=== PATIENT | female | born 1970 | race Caucasian/White ===

== ENCOUNTER 2017-02-17 14:51 | Emergency (ER) | payer SELFPAY ==
[2017-02-17] MEDS ORDERED: HYDROCODONE/ACETAMINOPHEN 5-325 MG TABLET PO ONE (15:26)
--- NOTE | 2017-02-17 15:28 | ER Document Report ---
ED General - General Chief Complaint: L flank pain Stated Complaint: BACK PAIN Time Seen by Provider: 02/17/17 15:16 Mode of Arrival: Ambulatory Information source: Patient Notes: 46-year-old female history polycystic kidney disease presents with complaints of left flank pain of 2 week duration. Patient denies any fevers or chills nausea vomiting or diarrhea. TRAVEL OUTSIDE OF THE [place] IN LAST 30 DAYS: No - HPI Onset: Other - 2 week duration Onset/Duration: Persistent Quality of pain: Achy Severity: Mild Pain Level: 1 Associated symptoms: Other Exacerbated by: Movement Relieved by: Denies Similar symptoms previously: No Recently seen / treated by doctor: No - Related Data Allergies/Adverse Reactions: codeine Allergy (Verified 02/17/17 15:16) Past Medical History - Social History Smoking Status: Never Smoker Cigarette use (# per day): No Chew tobacco use (# tins/day): No Smoking Education Provided: No Frequency of alcohol use: Rare Drug Abuse: None Family History: Reviewed & Not Pertinent - Past Medical History Cardiac Medical History: Reports: Hx Hypertension Renal/ Medical History: Denies: Hx Peritoneal Dialysis GI Medical History: Reports: Hx Gastroesophageal Reflux Disease Surgical Hx: Negative - Immunizations Hx Diphtheria, Pertussis, Tetanus Vaccination: No Review of Systems - Review of Systems Notes: REVIEW OF SYSTEMS: CONSTITUTIONAL : Denies fever, chills, or sweats. Denies recent illness. EENT: Denies eye, ear, throat, or mouth pain or symptoms. Denies nasal or sinus congestion or discharge. Denies throat, tongue, or mouth swelling or difficulty swallowing. CARDIOVASCULAR: Denies chest pain. Denies palpitations or racing or irregular heart beat. Denies ankle edema. RESPIRATORY: Denies cough, cold, or chest congestion. Denies shortness of breath, difficulty breathing, or wheezing. GASTROINTESTINAL: Admits to left flank pain GENITOURINARY: Denies difficulty urinating, painful urination, burning, frequency, blood in urine, or discharge. FEMALE GENITOURINARY: Denies vaginal bleeding, heavy or abnormal periods, irregular periods. Denies vaginal discharge or odor. MUSCULOSKELETAL: Denies back or neck pain or stiffness. Denies joint pain or swelling. SKIN: Denies rash, lesions or sores. HEMATOLOGIC : Denies easy bruising or bleeding. LYMPHATIC: Denies swollen, enlarged glands. NEUROLOGICAL: Denies confusion or altered mental status. Denies passing out or loss of consciousness. Denies dizziness or lightheadedness. Denies headache. Denies weakness or paralysis or loss of use of either side. Denies problems with gait or speech. Denies sensory loss, numbness, or tingling. Denies seizures. PSYCHIATRIC: Denies anxiety or stress. Denies depression, suicidal ideation, or homicidal ideation. ALL OTHER SYSTEMS REVIEWED AND NEGATIVE. PHYSICAL EXAMINATION: GENERAL: Well-appearing, well-nourished and in no acute distress. HEAD: Atraumatic, normocephalic. EYES: Pupils equal round and reactive to light, extraocular movements intact, conjunctiva are normal. ENT: Nares patent, oropharynx clear without exudates. Moist mucous membranes. NECK: Normal range of motion, supple without lymphadenopathy LUNGS: Breath sounds clear to auscultation bilaterally and equal. No wheezes rales or rhonchi. HEART: Regular rate and rhythm without murmurs ABDOMEN: Soft, nontender, nondistended abdomen. No guarding, no rebound. No masses appreciated. Mild left-sided CVA tenderness Female : deferred Musculoskeletal: Normal range of motion, no pitting or edema. No cyanosis. NEUROLOGICAL: Cranial nerves grossly intact. Normal speech, normal gait. Normal sensory, motor exams PSYCH: Normal mood, normal affect. SKIN: Warm, Dry, normal turgor, no rashes or lesions noted. Dictation was performed using [employer] voice recognition software Physical Exam - Vital signs Vitals: Temp Pulse Resp BP Pulse Ox 97.8 F 76 18 130/84 H 97 02/17/17 15:10 02/17/17 15:10 02/17/17 15:10 02/17/17 15:10 02/17/17 15:10 Course - Re-evaluation Re-evalutation: 02/17/17 15:28 Given history of polycystic kidney disease a CT has been ordered 02/17/17 16:31 CT is consistent with polycystic kidney disease, there is no active bleeding noted creatinine is 1.3. Patient otherwise is stable for discharge. She will be given nephrology follow-up and pain control After performing a Medical Screening Examination, I estimate there is LOW risk for ACUTE APPENDICITIS, BOWEL OBSTRUCTION, ACUTE CHOLECYSTITIS, PERFORATED DIVERTICULITIS, INCARCERATED HERNIA, PANCREATITIS, PELVIC INFLAMMATORY DISEASE, PERFORATED ULCER, ECTOPIC , or TUBO-OVARIAN ABSCESS, thus I consider the discharge disposition reasonable. Also, there is no evidence or peritonitis , sepsis, or toxicity. I have reevaluated this patient multiple times and no significant life threatening changes are noted. The patient and I have discussed the diagnosis and risks, and we agree with discharging home with close follow-up with the understanding that symptoms and presentations can change. We also discussed returning to the Emergency Department immediately if new or worsening symptoms occur. We have discussed the symptoms which are most concerning (e.g., bloody stool, fever, changing or worsening pain, vomiting) that necessitate immediate return. - Vital Signs Vital signs: Temp Pulse Resp BP Pulse Ox 97.8 F 76 18 130/84 H 97 02/17/17 15:10 02/17/17 15:10 02/17/17 15:10 02/17/17 15:10 02/17/17 15:10 - Laboratory Result Diagrams: 02/17/17 15:28 02/17/17 15:28 Laboratory results interpreted by me: 02/17/17 02/17/17 15:28 15:28 RDW 14.7 H Sodium 135.8 L Creatinine 1.30 H Est GFR ( Amer) 53 L Est GFR (Non-Af Amer) 44 L Glucose 131 H AST 13 L - Diagnostic Test Radiology reviewed: Image reviewed, Reports reviewed - report given to the patient Discharge - Discharge Clinical Impression: Polycystic kidney, Flank pain Condition: Stable Disposition: HOME, SELF-CARE Prescriptions: Oxycodone HCl/Acetaminophen [Percocet 5-325 mg Tablet] 1 - 2 tab PO Q4H PRN #25 tablet PRN Reason: Referrals: Michael MAE MD [ACTIVE STAFF] - Follow up tomorrow
[2017-02-17 15:39] LABS: ABSOLUTE EOSINOPHILS # (AUTO) 0.1 10^3/uL (0.0-0.6); ABSOLUTE LYMPHOCYTES (AUTO) 1.8 10^3/uL (0.5-4.7); ABSOLUTE MONOCYTES (AUTO) 0.5 10^3/uL (0.1-1.4); ABSOLUTE NEUT (AUTO) 5.5 10^3/uL (1.7-8.2); BASOPHILS % (AUTO) 0.5 % (0-2); EOSINOPHILS % (AUTO) 0.9 % (0-6); HEMATOCRIT 40.7 % (36.0-47.0); HEMOGLOBIN 14.3 g/dL (12.0-15.5); HGB HCT DIFFERENCE 2.2; LYMPHOCYTES % (AUTO) 23.2 % (13-45); MEAN CORPUSCULAR HEMOGLOBIN 31.2 pg (27.0-33.4); MEAN CORPUSCULAR HGB CONC 35.1 g/dL (32.0-36.0); MEAN CORPUSCULAR VOLUME 89 fl (80-97); RED BLOOD COUNT 4.59 10^6/uL (3.72-5.28); RED CELL DISTRIBUTION WIDTH 14.7 % (11.5-14.0); SEGMENTED NEUTROPHILS % (AUTO) 69.4 % (42-78); WHITE BLOOD COUNT 7.9 10^3/uL (4.0-10.5)
[2017-02-17 15:45] LABS: APPEARANCE,URINE CLEAR; BILIRUBIN,URINE NEGATIVE (NEGATIVE); GLUCOSE, URINE NEGATIVE (NEGATIVE); KETONES,URINE NEGATIVE (NEGATIVE); LEUKOCYTE ESTERASE,URINE NEGATIVE (NEGATIVE); NITRITE,URINE NEGATIVE (NEGATIVE); PROTEIN,URINE NEGATIVE (NEGATIVE); URINE SPECIFIC GRAVITY 1.009; UROBILINOGEN,URINE NEGATIVE mg/dL (<2.0)
[2017-02-17 15:51] LABS: ALANINE AMINOTRANSFERASE 24 U/L (9-52); ALBUMIN 4.2 g/dL (3.5-5.0); ALKALINE PHOSPHATASE 70 U/L (38-126); ANION GAP 8 (5-19); ASPARTATE AMINO TRANSFERASE 13 U/L (14-36); BILIRUBIN,DIRECT 0.3 mg/dL (0.0-0.4); BILIRUBIN,TOTAL 0.5 mg/dL (0.2-1.3); BLOOD UREA NITROGEN 19 mg/dL (7-20); CALCIUM 9.1 mg/dL (8.4-10.2); CARBON DIOXIDE 28 mmol/L (22-30); CHLORIDE 100 mmol/L (98-107); GLUCOSE 131 mg/dL (75-110); SODIUM 135.8 mmol/L (137-145); TOTAL PROTEIN 7.1 g/dL (6.3-8.2)
--- NOTE | 2017-02-17 16:20 | RADIOLOGY REPORT (SQ) ---
EXAM DESCRIPTION: CT LTD RENAL STONE PROTOCOL ON COMPLETED DATE/TIME: 02/17/2017 4:00 pm REASON FOR STUDY: left flank pain, hx of polycystic kidney disease COMPARISON: None. TECHNIQUE: CT scan of the abdomen and pelvis performed without intravenous or oral contrast. Images reviewed with lung, soft tissue, and bone windows. Reconstructed coronal and sagittal MPR images revi ewed. All images stored on PACS. All CT scanners at this facility use dose modulation, iterative reconstruction, and/or weight based d osing when appropriate to reduce radiation dose to as low as reasonably achievable (ALARA). [facility]: Dose Right [facility]: CareDose [facility]: Dose Right [facility]: Teradose 4D [facility]: Smart Tapactive RADIATION DOSE: Up-to-date CT equipment and radiation dose reduction techniques were employed. CTDIv ol: 15.0 mGy. DLP: 855 mGy-cm.mGy. LIMITATIONS: None. FINDINGS: LOWER CHEST: No significant findings. No nodules or infiltrates. NON-CONTRASTED LIVER, SPLEEN, ADRENALS: Evaluation limited by lack of IV contrast. No identified sign ificant masses. Couple tiny hepatic cysts are identified. PANCREAS: No masses. No peripancreatic inflammatory changes. GALLBLADDER: No identified stones by CT criteria. No inflammatory changes to suggest cholecystitis. RIGHT KIDNEY AND URETER: No suspicious masses. Assessment limited by lack of IV contrast. Multiple v arying size renal cysts are identified consistent with polycystic renal disease No significant calc ifications. No hydronephrosis or hydroureter. LEFT KIDNEY AND URETER: No suspicious masses. Assessment limited by lack of IV contrast. Multiple va rying size renal cysts are identified consistent with polycystic renal disease. No significant calci fications. No hydronephrosis or hydroureter. AORTA AND RETROPERITONEUM: No aneurysm. No retroperitoneal masses or adenopathy. BOWEL AND PERITONEAL CAVITY: No obvious masses or inflammatory changes. No free fluid. APPENDIX: Normal. PELVIS, BLADDER, AND ABDOMINAL WALL:No abnormal masses. No free fluid. Bladder normal. BONES: No significant findings. OTHER: No other significant finding. IMPRESSION: Findings consistent with polycystic renal disease. No other significant findings. TECHNICAL DOCUMENTATION: JOB ID: [id number] Quality ID # [id number]: Final reports with documentation of one or more dose reduction techniques (e.g., Au tomated exposure control, adjustment of the mA and/or kV according to patient size, use of iterative reconstruction technique) 2010 [employer]- All Rights Reserved
[2017-02-17 16:40] VITALS: BP 123/82
== END 2017-02-17 16:46 | disposition home or self-care (01) ==
LOC: ER 14:51
DX: Q61.3 Polycystic kidney, unspecified (principal); R10.9 Unspecified abdominal pain; I10 Essential (primary) hypertension; Z88.5 Allergy status to narcotic agent
CPT/HCPCS: 36415; 76380; 80053; 81001; 81025; 85025; 99284

== ENCOUNTER 2017-08-11 15:19 | Emergency (ER) | payer SELFPAY ==
--- NOTE | 2017-08-11 16:56 | ER Document Report ---
ED Flu Like - General Chief Complaint: Flu Symptoms Stated Complaint: COUGH,BODY ACHES,CHILLS Time Seen by Provider: 08/11/17 16:23 Mode of Arrival: Ambulatory Information source: Patient Notes: Pt has one day of cough, fever, chills, body aches and congestion that she woke up with yesterday. She denies nausea/vomiting, diarrhea. She denies shortness of breath of difficulty breathing. She states she needs a work note. Has not taken her temperature. TRAVEL OUTSIDE OF THE [place] IN LAST 30 DAYS: No - Related Data Allergies/Adverse Reactions: codeine Allergy (Verified 08/11/17 15:19) Past Medical History - General Information source: Patient - Social History Smoking Status: Unknown if Ever Smoked Family History: Reviewed & Not Pertinent Patient has suicidal ideation: No Patient has homicidal ideation: No - Past Medical History Cardiac Medical History: Reports: Hx Hypertension Renal/ Medical History: Denies: Hx Peritoneal Dialysis GI Medical History: Reports: Hx Gastroesophageal Reflux Disease - Immunizations Hx Diphtheria, Pertussis, Tetanus Vaccination: No Review of Systems - Review of Systems Constitutional: See HPI EENT: See HPI Cardiovascular: No symptoms reported Respiratory: See HPI Gastrointestinal: No symptoms reported Genitourinary: No symptoms reported Female Genitourinary: No symptoms reported Musculoskeletal: No symptoms reported Skin: No symptoms reported Hematologic/Lymphatic: No symptoms reported Neurological/Psychological: No symptoms reported Physical Exam - Vital signs Vitals: Temp Pulse Resp BP Pulse Ox 99.6 F 86 20 139/89 H 96 08/11/17 15:53 08/11/17 15:53 08/11/17 15:53 08/11/17 15:53 08/11/17 15:53 - Notes Notes: PHYSICAL EXAMINATION: GENERAL: mildly ill appearing, in no acute distress. HEAD: Atraumatic, normocephalic. EYES: Pupils equal round and reactive to light, extraocular movements intact, sclera anicteric, conjunctiva are normal. ENT: ear canals without erythema or foreign body, TMs pearly montes with good bony landmarks, nares with mucoid discharge, oropharynx clear without exudates. Moist mucous membranes. NECK: Normal range of motion, supple without lymphadenopathy LUNGS: Cough, otherwise CTAB and equal. No wheezes rales or rhonchi. HEART: Regular rate and rhythm without murmurs EXTREMITIES: Normal range of motion, no pitting edema. No cyanosis. NEUROLOGICAL: Cranial nerves grossly intact. Normal sensory/motor exams. PSYCH: Normal mood, normal affect. SKIN: Warm, Dry, normal turgor, no rashes or lesions noted Course - Re-evaluation Re-evalutation: 08/11/17 16:56 Patient declined Tamiflu today after a lengthy discussion of risks and benefits. I will sent home with symptomatic relief. - Vital Signs Vital signs: Temp Pulse Resp BP Pulse Ox 99.6 F 86 20 139/89 H 96 08/11/17 15:53 08/11/17 15:53 08/11/17 15:53 08/11/17 15:53 08/11/17 15:53 Discharge - Discharge Clinical Impression: Flu-like symptoms Condition: Stable Disposition: HOME, SELF-CARE Additional Instructions: Return immediately for any new or worsening symptoms. Follow up with primary care provider, call tomorrow to make followup appointment. Drink plenty of fluids and rest. Prescriptions: Hydrocodone Bit/Homatropine [Hycodan Syrup 5-1.5 mg/5 ml Ud Cup] 5 ml PO Q4HP PRN #120 ml PRN Reason: Cetirizine HCl [Zyrtec 10 mg Tablet] 1 tab PO DAILY #30 tablet Forms: Return to Work Referrals: MITCH YANG PA-C [Primary Care Provider] - Follow up as needed
[2017-08-11 17:25] VITALS: BP 132/78
== END 2017-08-11 17:20 | disposition home or self-care (01) ==
LOC: ER 15:19
DX: R05 Cough (principal); R52 Pain, unspecified; J34.89 Other specified disorders of nose and nasal sinuses; I10 Essential (primary) hypertension; Z88.5 Allergy status to narcotic agent
CPT/HCPCS: 99283

== ENCOUNTER → 2017-12-23 | Outpatient (CLI) | payer OTHER ==
--- NOTE | 2017-12-23 16:32 | RADIOLOGY REPORT (SQ) ---
EXAM DESCRIPTION: CHEST PA/LATERAL COMPLETED DATE/TIME: 12/23/2017 3:37 pm REASON FOR STUDY: R07.9 CHEST PAIN, UNSPECIFIED TYPE COMPARISON: None. EXAM PARAMETERS: NUMBER OF VIEWS: two views TECHNIQUE: Digital Frontal and Lateral radiographic views of the chest acquired. RADIATION DOSE: NA LIMITATIONS: none FINDINGS: LUNGS AND PLEURA: No opacities, masses or pneumothorax. No pleural effusion. MEDIASTINUM AND HILAR STRUCTURES: No masses or contour abnormalities. HEART AND VASCULAR STRUCTURES: Heart normal size. No evidence for failure. BONES: No acute findings. HARDWARE: None in the chest. OTHER: No other significant finding. IMPRESSION: NO SIGNIFICANT RADIOGRAPHIC FINDING IN THE CHEST. TECHNICAL DOCUMENTATION: JOB ID: [id number] [employer]- All Rights Reserved Reading location - IP/workstation name: [email or web address]
== END ==
LOC: RAD 15:05
PROVIDERS: ATTEND Physician Assistant
DX: R07.9 Chest pain, unspecified (principal)
CPT/HCPCS: 71046

== ENCOUNTER → 2018-10-03 | Outpatient (CLI) | payer OTHER ==
--- NOTE | 2018-10-03 13:08 | RADIOLOGY REPORT (SQ) ---
EXAM DESCRIPTION: BARIUM SWALLOW ESOPHAGUS COMPLETED DATE/TIME: 10/03/2018 9:59 am REASON FOR STUDY: R13.10 DYSPHAGIA, UNSPECIFIED R13.10 DYSPHAGIA, UNSPECIFIED COMPARISON: None. TECHNIQUE: Under fluoroscopic guidance, patient ingested effervescent granules followed by thick and thin barium. Fluoroscopic spot images and routine radiographic images acquired and stored on PACS. 12 MM BARIUM TABLET GIVEN: Yes No significant delay in passage. LIMITATIONS: None. FLUOROSCOPY TIME: FLUORO TIME: 2.1 minutes 15 series of images saved to PACS. FINDINGS: NEUROMUSCULAR COORDINATION OF SWALLOW: Normal. No aspiration. Mildly prominent cricophary ngeal is impression without Zenker's diverticulum ESOPHAGEAL MOTILITY: Tertiary contractions ESOPHAGEAL MUCOSA: Normal mucosa without masses or ulceration. GASTRO-ESOPHAGEAL JUNCTION: Moderate size retrocardiac hiatal hernia. Unprovoked gastroesophageal re flux to the cervical esophagus. There is early Schatzki's ring formation in the distal esophagus whi ch did not impede passage of the 12 mm barium tablet. NON-GI TRACT STRUCTURES: No significant finding. OTHER: No other significant finding. IMPRESSION: Moderate size retrocardiac hiatal hernia with gastroesophageal reflux to the cervical es ophagus. No distal esophageal stricture. Early Schatzki's ring formation. COMMENT: Quality ID [id number]: Final reports for procedures using fluoroscopy that document radiation exp osure indices, or exposure time and number of fluorographic images (if radiation exposure indices are not available) TECHNICAL DOCUMENTATION: JOB ID: [id number] [employer]- All Rights Reserved Reading location - IP/workstation name: [email or web address]
== END ==
LOC: RAD 09:10
PROVIDERS: ATTEND Physician Assistant
DX: R13.10 Dysphagia, unspecified (principal); K44.9 Diaphragmatic hernia without obstruction or gangrene; K22.2 Esophageal obstruction; K21.0 Gastro-esophageal reflux disease with esophagitis
CPT/HCPCS: 74220

== ENCOUNTER 2019-05-15 05:35 | Day surgery (SDC) | payer OTHER ==
[2019-05-12 11:21] LABS: APPEARANCE,URINE CLEAR; BILIRUBIN,URINE NEGATIVE (NEGATIVE); COLOR,URINE YELLOW; GLUCOSE, URINE 50 mg/dL (NEGATIVE); KETONES,URINE NEGATIVE (NEGATIVE); LEUKOCYTE ESTERASE,URINE NEGATIVE (NEGATIVE); NITRITE,URINE NEGATIVE (NEGATIVE); PROTEIN,URINE NEGATIVE (NEGATIVE); URINE SPECIFIC GRAVITY 1.014; UROBILINOGEN,URINE NEGATIVE mg/dL (<2.0)
--- NOTE | 2019-05-12 12:23 | RADIOLOGY REPORT (SQ) ---
EXAM DESCRIPTION: CHEST PA/LATERAL COMPLETED DATE/TIME: 05/12/2019 12:02 pm REASON FOR STUDY: PRE-OP COMPARISON: None. EXAM PARAMETERS: NUMBER OF VIEWS: two views TECHNIQUE: Digital Frontal and Lateral radiographic views of the chest acquired. RADIATION DOSE: NA LIMITATIONS: none FINDINGS: LUNGS AND PLEURA: No opacities, masses or pneumothorax. No pleural effusion. MEDIASTINUM AND HILAR STRUCTURES: No masses or contour abnormalities. HEART AND VASCULAR STRUCTURES: Heart normal size. No evidence for failure. BONES: No acute findings. HARDWARE: None in the chest. OTHER: No other significant finding. IMPRESSION: NO SIGNIFICANT RADIOGRAPHIC FINDING IN THE CHEST. TECHNICAL DOCUMENTATION: JOB ID: [id number] [employer]- All Rights Reserved Reading location - IP/workstation name: [email or web address]
[2019-05-12 12:28] LABS: HEMATOCRIT 41.9 % (36.0-47.0); HEMOGLOBIN 14.4 g/dL (12.0-15.5); MEAN CORPUSCULAR HEMOGLOBIN 29.8 pg (27.0-33.4); MEAN CORPUSCULAR HGB CONC 34.4 g/dL (32.0-36.0); MEAN CORPUSCULAR VOLUME 87 fl (80-97); PLATELET COUNT 243 10^3/uL (150-450); RED BLOOD COUNT 4.85 10^6/uL (3.72-5.28); RED CELL DISTRIBUTION WIDTH 15.1 % (11.5-14.0); WHITE BLOOD COUNT 7.4 10^3/uL (4.0-10.5)
[2019-05-12 12:51] LABS: ALBUMIN 4.2 g/dL (3.5-5.0); ALKALINE PHOSPHATASE 76 U/L (38-126); ANION GAP 14 (5-19); ASPARTATE AMINO TRANSFERASE 19 U/L (14-36); BILIRUBIN,DIRECT 0.1 mg/dL (0.0-0.4); BILIRUBIN,TOTAL 0.5 mg/dL (0.2-1.3); BLOOD UREA NITROGEN 14 mg/dL (7-20); CALCIUM 9.5 mg/dL (8.4-10.2); CARBON DIOXIDE 26 mmol/L (22-30); CHLORIDE 102 mmol/L (98-107); GLUCOSE 234 mg/dL (75-110); POTASSIUM 3.8 mmol/L (3.6-5.0); TOTAL PROTEIN 7.4 g/dL (6.3-8.2)
--- NOTE | 2019-05-12 16:19 | EKG REPORT ---
SEVERITY:- NORMAL ECG - SINUS RHYTHM : Confirmed by: Lauren Orantes MD 12-May-2019 16:18:32
[~2019-05-15 05:35] MED LIST: CEFAZOLIN SODIUM 2 GM in DEXTROSE 5%-WATER 100 ML IV PRN; LACTATED RINGERS 1000 ML IV PRN
[2019-05-15] MEDS ORDERED: FENTANYL CITRATE INJ/PF 250 MCG/5 ML AMPULE ONE (06:42)
[2019-05-15] MEDS ORDERED: MIDAZOLAM 2 MG/2 ML INJ ONE ×2 (06:42→09:46)
[2019-05-15] MEDS ORDERED: MORPHINE SULFATE 10 MG/ML INJ ONE (06:43)
[2019-05-15] MEDS ORDERED: PROPOFOL INJ 200 MG/20 ML VIAL IV ONE (06:43)
[2019-05-15] MEDS ORDERED: METHYLENE BLUE 50 MG/10 ML AMPULE ONE (07:07)
[2019-05-15] MEDS ORDERED: SCOPOLAMINE HYDROBROMIDE 1.5 MG PATCH.TD72 ONE (07:15)
[2019-05-15] MEDS ORDERED: METOCLOPRAMIDE HCL INJ/PF 10 MG/2 ML SDV ONE (07:15)
[2019-05-15] MEDS ORDERED: FAMOTIDINE INJ/PF 20 MG/2 ML SDV IV ONE (07:16)
[2019-05-15] MEDS ORDERED: ESTROGENS,CONJUGATED 0.625 MG/1 GM 30 GM TUBE PV ONE (07:45)
[2019-05-15] MEDS ORDERED: VASOPRESSIN INJ 20 UNIT/1 ML VIAL IV ONE ×2 (07:45)
[2019-05-15] MEDS ORDERED: VASOPRESSIN INJ 20 UNIT/1 ML VIAL ONE (08:02)
[2019-05-15] MEDS ORDERED: MEPERIDINE HCL/PF INJ 25 MG/1 ML DISP.SYRIN IV PRN (08:15)
[2019-05-15] MEDS ORDERED: PROMETHAZINE HCL INJ 25 MG/1 ML VIAL IV PRN ×2 (08:15→12:09)
[2019-05-15] MEDS ORDERED: DIPHENHYDRAMINE HCL 50 MG/ML VIAL IV PRN (08:15)
[2019-05-15] MEDS ORDERED: FENTANYL CITRATE INJ/PF 100 MCG/2 ML AMPUL IV PRN ×3 (08:15)
[2019-05-15] MEDS ORDERED: ACETAMINOPHEN 1,000 MG/100 ML RTUPB IV ONE (09:47)
[2019-05-15] MEDS ORDERED: FERRIC SUBSULFATE TP ONE (11:41)
[2019-05-15] MEDS ORDERED: ROCURONIUM BROMIDE INJ 50 MG/5 ML VIAL IV ONE (12:00)
[2019-05-15] MEDS ORDERED: ONDANSETRON HCL INJ/PF 4 MG/2 ML SDV ONE (12:00)
[2019-05-15] MEDS ORDERED: KETOROLAC TROMETHAMINE 60 MG/2 ML SDV ONE (12:00)
[2019-05-15] MEDS ORDERED: DEXAMETHASONE SOD PHOSPHATE INJ 4 MG/1 ML VIAL ONE ×2 (12:00→12:37)
[2019-05-15] MEDS ORDERED: SUCCINYLCHOLINE CHLORIDE INJ 200 MG/10 ML VIAL ONE (12:00)
[2019-05-15] MEDS ORDERED: LIDOCAINE 2% INJ-PF (20 MG/ML) 2 ML AMPUL ONE (12:00)
[2019-05-15] MEDS: HYDROMORPHONE HCL INJ/PF 2 MG/ML AMPULE IV PRN ×2 (12:08→12:13)
[2019-05-15] MEDS ORDERED: ACETAMINOPHEN 1,000 MG/100 ML RTUPB IV PRN (12:09)
[2019-05-15] MEDS ORDERED: OXYCODONE-ACETAMINOPHEN 5-325 MG TABLET PO PRN (12:09)
[2019-05-15] MEDS ORDERED: SIMETHICONE 80 MG TAB.CHEW PO PRN (12:09)
[2019-05-15] MEDS ORDERED: ACETAMINOPHEN 325 MG TABLET PO PRN (12:09)
[2019-05-15] MEDS ORDERED: HYDROMORPHONE HCL INJ/PF 2 MG/ML AMPULE ONE (12:16)
[2019-05-15] MEDS ORDERED: DIPHENHYDRAMINE HCL 50 MG/ML VIAL ONE (12:17)
--- NOTE | 2019-05-15 12:24 | Operative Report ---
Operative Report DATE OF SURGERY: 05/15/19 PREOPERATIVE DIAGNOSIS: 1. Complete uterine procidentia. 2. Grade 3 cystocel e. 3. Grade 3 rectocele. 4. Rectal polyp versus prolapse POSTOPERATIVE DIAGNOSIS: Same OPERATION: Vaginal hysterectomy; anterior and posterior colporrhaphy; sacral spinous ligament fixation; cystoscopy; rectal biopsy SURGEON: NEIL STEPHENS 1ST CUSTOMER SERVICE SECURITY OFFICER: HEATHER SAWYER ANESTHESIA: GA TISSUE REMOVED OR ALTERED: Uterus and cervix; excess vaginal mucosa; rectal biopsy COMPLICATIONS: None QUANTITATIVE BLOOD LOSS: 200 INTRAOPERATIVE FINDINGS: Complete uterine prolapse with very long lower uterine segment and cervix; difficulty establishing planes secondary to uterine fibrosis; grade 3 cystocele; grade 3 rectocele; rectal prolapse versus rectal polyp PROCEDURE: The patient was taken to the operating room where general anesthesia was a dministered without difficulty. Patient was then prepared and draped in normal sterile fashion in the dorsal lithotomy position. A Mcclendon catheter was then placed in the patient's bladder. A weighted speculum was then placed in the patient's vagina and it was immediately noted that there was grade 3 uterine prolapse. The anterior lip of the cervix was grasped with a Jina tenaculum. Next, the cervix was injected with lidocaine plus epinephrine. The cervix was then circumferentially incised with a scalpel and the bladder dissected off the pubovesical cervical fascia anteriorly with an open Ray-Ximena and the Metzenbaum scissors. The posterior cul-de-sac was not entered secondary to fibrotic tissue from the long-term uterine prolapse. The planes were difficult to establish. At this point a Theodore clamp was placed over the uterosacral ligaments on either side. There were then transected and suture ligated with 0 Vicryl. Hemostasis was noted. The cardinal ligaments were then clamped on both sides, transected and suture ligated in a similar fashion. Attempt was made to enter anteriorly with the plane was not located. The uterine arteries and the broad ligament were then serially clamped with Theodore clamps, transected and suture-ligated on both sides. Excellent hemostasis was visualized. The cervix was very long, approximately [address] Sawyer and myself continued to take down the pedicles. Finally, the he anterior cul-de-sac was then entered sharply. A right angle was then placed into the space. We were then able to finally enter posteriorly as well. Both cornua were then clamped with Theodore clamps, transected and the uterus was delivered. These pedicles were then suture-ligated with excellent hemostasis. Neither fallopian tube or ovary could be located, therefore they were not removed. Vaginal cuff angles were then closed in with [id number] stitches of 0 Vicryl and transfixed to the ipsilateral cardinal and uterosacral ligaments. The remainder of the vaginal cuff was closed with 0 Vicryl in a running, locked fashion. Hemostasis was noted. Attention was then turned to the anterior colporrhaphy. An Allis clamp was used to grasp the apex of the defect as well as the lower defect. Sterile water was injected beneath the vaginal mucosa. The tissue was then undermined in order to make a vertical incision in the anterior vaginal mucosa. The edges were held with Allis clamps. The tissue was then dissected off revealing the defect. The defect was then repaired with interrupted sutures of 2-0 Vicryl. The excess vaginal mucosa was then trimmed and 2-0 Vicryl was used to close the vaginal mucosa in the midline. Hemostasis was noted. Attention was then turned to the posterior colporrhaphy. Incision was made on the perineal body with Metzenbaum scissors. The tissue was then undermined in order to make a vertical incision in the posterior vaginal mucosa. The edges were then held with Allis clamps. The perirectal fascia was then dissected off the posterior vaginal mucosa. The apex of the rectocele was then held with an Allis clamp. A finger was placed in the rectovaginal space, which was used to find the initial spine in preparation for the sacral spinous ligament fixation. The spine was palpated directly in a zone approximately 2 cm medial to the spine was selected for insertion of the Anchorsure. Dr. Sawyer inserted the device and placed the anchor. The polypropylene suture was held with a hemostat for later use. Attention was then returned to the posterior repair. 2-0 Vicryl was used in an interrupted fashion to pass through the margin of the levator ani from the apex down to the posterior fourchette. The sutures were held until the fourchette was reached. The Anchorsure was then loosely attached to the vaginal mucosa, at the apex. Each interrupted suture was then tied. The Anchorsure suture was then cinched down to suspend the vaginal cuff. The excess vaginal mucosa was then trimmed. Vaginal mucosa was then closed in a running, locked fashion with 2-0 Vicryl. Hemostasis was noted. The perineal body was also repaired. The patient was then given methylene blue in preparation for the cystoscopy. The Mcclendon catheter was removed and the cystoscope was then introduced into the urethra and bladder. After approximately 30 minutes, the methylene blue was seen extruding from the right and left ureteral orifices. The cystoscope was then removed and the Mcclendon catheter was replaced. Attention was then turned to the rectal polyp versus rectal prolapse. I called Dr. Yi into the OR for evaluation. He felt that it may have been a polyp, therefore he suggested that I biopsied it. The lesion was then biopsied and the bleeding was difficult to control. Call Dr. Yi back into the OR and he instructed me to put a free tie of 2-0 Vicryl around the entire lesion. Hemostasis was noted. He informed me that the lesion will eventually transected itself. Patient tolerated the procedures well. Sponge, lap, needle and instrument counts were correct x2. The patient was given 2 g of Ancef prior to the start of the procedure. Patient was taken to the recovery room in stable condition. Dr. Sawyer's assistance during the entire case and performance of the sacral spinous ligament fixation was essential in performing these procedures in a timely and proficient manner.
[2019-05-15] MEDS: RINGERS SOLUTION,LACTATED 1,000 ML IV PRN ×2 (15:32→23:00)
[2019-05-15] MEDS: OXYCODONE-ACETAMINOPHEN 5-325 MG TABLET PO PRN (15:54)
[2019-05-15] MEDS ORDERED: FUROSEMIDE INJ/PF 20 MG/2 ML SDV IV ONE (17:45)
[2019-05-15] MEDS: DOCUSATE SODIUM 100 MG CAPSULE PO SCH (17:56)
[2019-05-16] MEDS: OXYCODONE-ACETAMINOPHEN 5-325 MG TABLET PO PRN ×2 (03:51→13:14)
[2019-05-16 06:22] LABS: HEMATOCRIT 38.3 % (36.0-47.0); HEMOGLOBIN 13.1 g/dL (12.0-15.5); MEAN CORPUSCULAR HEMOGLOBIN 29.8 pg (27.0-33.4); MEAN CORPUSCULAR HGB CONC 34.2 g/dL (32.0-36.0); MEAN CORPUSCULAR VOLUME 87 fl (80-97); PLATELET COUNT 155 10^3/uL (150-450); RED BLOOD COUNT 4.39 10^6/uL (3.72-5.28); RED CELL DISTRIBUTION WIDTH 15.4 % (11.5-14.0); WHITE BLOOD COUNT 7.3 10^3/uL (4.0-10.5)
[2019-05-16] MEDS: RINGERS SOLUTION,LACTATED 1,000 ML IV PRN (08:05)
[2019-05-16] MEDS: DOCUSATE SODIUM 100 MG CAPSULE PO SCH (10:50)
--- NOTE | 2019-05-16 14:22 | PDOC DISCHARGE SUMMARY ---
Impression - Admit/DC Date/PCP Admission Date/Primary Care Provider: GARRETT CARLOS Discharge Date: 05/16/19 - Discharge Diagnosis (1) Complete uterine prolapse Is this a current diagnosis for this admission?: Yes (2) Cystocele and rectocele with complete uterovaginal prolapse Is this a current diagnosis for this admission?: Yes (3) Rectal lesion Is this a current diagnosis for this admission?: Yes - Additional Information Resuscitation Status: Full Code Discharge Diet: Regular Discharge Activity: Activity As Tolerated, Balance Activity w/Rest, No Lifting Over 10 Pounds, Pelvic Rest Referrals: NEIL VICENTE DO [ACTIVE STAFF] - Home Medications: Citalopram Hydrobromide [Celexa] 1 tab PO QHS 05/12/19 Glimepiride 1 tab PO QHS 05/12/19 Lisinopril [Prinivil] 1 tab PO QHS 05/12/19 Omeprazole 1 cap PO DAILY 05/12/19 History of Present Illiness History of Present Illness: ZACH GRACE is a 48 year old G1, P1 presented to the office almost a year ago complaining of complete uterine prolapse. At that time, the patient was not ready to have her surgery. She presented approximately 8 months later stating that she is now ready for her surgery. She is newly and was unable to have intercourse. Hospital Course Hospital Course: Hospital course was essentially uneventful and by postop day #1, the patient is ambulating voiding without difficulty. She is tolerating a regular diet. Patient denies chest pain, shortness of breath, fever/chills or nausea/vomiting. However, she was complaining of right thigh numbness and some heaviness in her legs. She has had some improvement since she has ambulated. Physical Exam - Physical Exam Vital Signs: Temp Pulse Resp BP Pulse Ox 98.3 F 86 16 120/73 96 05/16/19 12:05 05/16/19 12:05 05/16/19 12:05 05/16/19 12:05 05/16/19 12:05 Pulse Oximeter Continuous Start: 05/15/19 15:00 Freq: RTQ4 Status: Active Protocol: Document 05/16/19 12:02 [facility] (Rec: 05/16/19 12:02 [facility] [email or web address]) Pulse Oximetry Assessment Equipment Usage Equipment Standby Continuous SpO2 Machine # 1 Intake & Output 05/15/19 05/16/19 05/17/19 06:59 06:59 06:59 Intake Total 3133 1000 Output Total 1150 100 Balance 1982 900 Weight 98.43 kg 111.4 kg General appearance: PRESENT: no acute distress Respiratory exam: PRESENT: clear to auscultation marleny Cardiovascular exam: PRESENT: RRR GI/Abdominal exam: PRESENT: normal bowel sounds, soft Extremities exam: ABSENT: calf tenderness, clubbing, full ROM, joint swelling, pedal edema, tenderness, +1 edema, +2 edema, other Results Laboratory Results: WBC 7.3 10^3/uL (4.0-10.5) 05/16/19 05:06 RBC 4.39 10^6/uL (3.72-5.28) 05/16/19 05:06 Hgb 13.1 g/dL (12.0-15.5) 05/16/19 05:06 Hct 38.3 % (36.0-47.0) 05/16/19 05:06 MCV 87 fl (80-97) 05/16/19 05:06 MCH 29.8 pg (27.0-33.4) 05/16/19 05:06 MCHC 34.2 g/dL (32.0-36.0) 05/16/19 05:06 RDW 15.4 % (11.5-14.0) H 05/16/19 05:06 Plt Count 155 10^3/uL (150-450) 05/16/19 05:06 Sodium 141.8 mmol/L (137-145) 05/12/19 10:53 Potassium 3.8 mmol/L (3.6-5.0) 05/12/19 10:53 Chloride 102 mmol/L (98-107) 05/12/19 10:53 Carbon Dioxide 26 mmol/L (22-30) 05/12/19 10:53 Anion Gap 14 (5-19) 05/12/19 10:53 BUN 14 mg/dL (7-20) 05/12/19 10:53 Creatinine 1.26 mg/dL (0.52-1.25) H 05/12/19 10:53 Est GFR ( Amer) 54 (>60) L 05/12/19 10:53 Est GFR (MDRD) Non-Af 45 (>60) L 05/12/19 10:53 Glucose 234 mg/dL (75-110) H 05/12/19 10:53 POC Glucose 208 mg/dL (70-110) H 05/15/19 08:11 Calcium 9.5 mg/dL (8.4-10.2) 05/12/19 10:53 Total Bilirubin 0.5 mg/dL (0.2-1.3) 05/12/19 10:53 Direct Bilirubin 0.1 mg/dL (0.0-0.4) 05/12/19 10:53 Neonat Total Bilirubin Not Reportable 05/12/19 10:53 Neonat Direct Bilirubin Not Reportable 05/12/19 10:53 Neonat Indirect Bili Not Reportable 05/12/19 10:53 AST 19 U/L (14-36) 05/12/19 10:53 ALT 20 U/L (<35) 05/12/19 10:53 Alkaline Phosphatase 76 U/L (38-126) 05/12/19 10:53 Total Protein 7.4 g/dL (6.3-8.2) 05/12/19 10:53 Albumin 4.2 g/dL (3.5-5.0) 05/12/19 10:53 Urine Color YELLOW 05/12/19 10:44 Urine Appearance CLEAR 05/12/19 10:44 Urine pH 5.0 (5.0-9.0) 05/12/19 10:44 Ur Specific [place] 1.014 05/12/19 10:44 Urine Protein NEGATIVE mg/dL (NEGATIVE) 05/12/19 10:44 Urine Glucose (UA) 50 mg/dL (NEGATIVE) H 05/12/19 10:44 Urine Ketones NEGATIVE mg/dL (NEGATIVE) 05/12/19 10:44 Urine Blood NEGATIVE (NEGATIVE) 05/12/19 10:44 Urine Nitrite NEGATIVE (NEGATIVE) 05/12/19 10:44 Urine Bilirubin NEGATIVE (NEGATIVE) 05/12/19 10:44 Urine Urobilinogen NEGATIVE mg/dL (<2.0) 05/12/19 10:44 Ur Leukocyte Esterase NEGATIVE (NEGATIVE) 05/12/19 10:44 Urine WBC (Auto) 1 /HPF 05/12/19 10:44 Urine RBC (Auto) 2 /HPF 05/12/19 10:44 Squamous Epi Cells Auto 1 /HPF 05/12/19 10:44 Urine Mucus (Auto) RARE /LPF 05/12/19 10:44 Urine Ascorbic Acid NEGATIVE (NEGATIVE) 05/12/19 10:44 Urine HCG, Qual NEGATIVE (NEGATIVE) 05/15/19 06:09 Blood Type B POSITIVE 05/12/19 10:53 Antibody Screen NEGATIVE 05/12/19 10:53 Impressions: Chest X-Ray 05/12/19 11:55 IMPRESSION: NO SIGNIFICANT RADIOGRAPHIC FINDING IN THE CHEST. Plan Plan of Treatment: 1. Discharge home 2. May shower as usual 3. Prescriptions for Percocet and ibuprofen given 4. Follow-up in the office in 2 weeks for postop exam or sooner if needed Stroke Is this a Stroke Patient?: No Acute Heart Failure - Is this a Heart Failure Patient?: No
[2019-05-16 14:34] VITALS: BP 105/70
== END 2019-05-16 14:45 | disposition home or self-care (01) ==
LOC: OROUT 05:35 → 2N 14:30 → OROUT 05-16 14:45
PROVIDERS: ATTEND Obstetrics & Gynecology
DX: N81.3 Complete uterovaginal prolapse (principal); I10 Essential (primary) hypertension; E11.9 Type 2 diabetes mellitus without complications; Z87.891 Personal history of nicotine dependence; N87.0 Mild cervical dysplasia; N84.0 Polyp of corpus uteri; N80.0 Endometriosis of uterus; D25.1 Intramural leiomyoma of uterus
CPT/HCPCS: 93005; 86900; 86901; 36415 ×2; 86850; 82962; 85027 ×2; 81025; 80053; 81001; 88305 ×2; 88307 ×2; 71046; 94799; 93010; 94762 ×2; 00944; 58260; 57260; 57282; 45100; J2250; J0690; J3490 ×5; J1100; J1200; J1885; J3010; J1940; J2765; J2270; J1170; J0330; J2405; J7060; J7120 ×2; J2704; S0028; J0131; Q9968; 944

== ENCOUNTER → 2019-06-10 | Outpatient (CLI) | payer OTHER ==
--- NOTE | 2019-06-10 14:06 | WOMENS IMAGING REPORT ---
EXAM DESCRIPTION: BILAT SCREENING MAMMO W/CAD COMPLETED DATE/TIME: 06/10/2019 1:36 pm REASON FOR STUDY: Z12.31 SCREENING MAMMO Z12.31 ENCNTR SCREEN MAMMOGRAM FOR MALIGNANT NEOPLASM OF B RE COMPARISON: 2013 EXAM PARAMETERS: Standard craniocaudal and mediolateral oblique views of each breast recorded using digital acquisition. Read with the assistance of CAD. [facility] [facility] [employer] Version 9.2 LIMITATIONS: None. FINDINGS: No suspicious masses, suspicious calcifications or architectural distortion. No areas of c oncern. IMPRESSION: Negative MAMMOGRAM. BIRADS 1 BREAST DENSITY: b. There are scattered areas of fibroglandular density. BIRAD: ASSESSMENT: 1 NEGATIVE RECOMMENDATION: ROUTINE SCREENING COMMENT: The patient has been notified of the results by letter per MQSA requirements. Additional no tification policies are in place for contacting patient with suspicious or incomplete findings. Quality ID #225: The [employer] recommends an annual screening mammogram for women aged 40 years or over. This facility utilizes a reminder system to ensure that all patients receive reminder letters, and/or direct phone calls for appointments. This includes reminders for routine scr eening mammograms, diagnostic mammograms, or other Breast Imaging Interventions when appropriate. Th is patient will be placed in the appropriate reminder system. TECHNICAL DOCUMENTATION: FINDING NUMBER: (1) ASSESSMENT: (1) JOB ID: [id number] [employer]- All Rights Reserved Reading location - IP/workstation name: [email or web address]
== END ==
LOC: WI 13:05
PROVIDERS: ATTEND Physician Assistant
DX: Z12.31 Encounter for screening mammogram for malignant neoplasm of breast (principal)
CPT/HCPCS: 77067

== ENCOUNTER → 2019-08-07 | Outpatient (CLI) | payer OTHER ==
--- NOTE | 2019-08-07 13:52 | WOMENS IMAGING REPORT ---
EXAM DESCRIPTION: RETROPERITONEAL U/S COMPLETED DATE/TIME: 08/07/2019 11:14 am REASON FOR STUDY: N18.3 CHRONIC KIDNEY DISEASE, STAGE 3 (MODERATE) Q61.2 POLYCYSTIC KIDNEY, A Q61.2 POLYCYSTIC KIDNEY, ADULT TYPE N18.3 CHRONIC KIDNEY DISEASE, STAGE 3 (MODERATE) COMPARISON: None. TECHNIQUE: Dynamic and static grayscale images acquired of the kidneys and bladder and recorded on P ACS. Additional selected color Doppler and spectral images recorded. LIMITATIONS: None. FINDINGS: RIGHT KIDNEY: Enlarged measuring approximately 20.7 cm. There are innumerable cysts, jj e of which are incompletely characterized. Largest measures approximately 12 cm. No hydronephrosis. No calcifications. LEFT KIDNEY: Enlarged measuring approximately 20.4 cm. There are innumerable cysts, some which are also incompletely characterize. Largest measures approximately 10.6 cm. No hydronephrosis. No ca lcifications. BLADDER: Unremarkable. OTHER FINDINGS: No other significant finding. IMPRESSION: Markedly enlarged kidneys with innumerable cysts compatible with polycystic kidney disea se. No definite hydronephrosis. TECHNICAL DOCUMENTATION: JOB ID: [id number] [employer]- All Rights Reserved Reading location - IP/workstation name: [email or web address]
== END ==
LOC: RAD 10:20
PROVIDERS: ATTEND Physician Assistant Medical
DX: Q61.2 Polycystic kidney, adult type (principal); N18.3 Chronic kidney disease, stage 3 (moderate)
CPT/HCPCS: 76770

== ENCOUNTER → 2020-07-13 | Outpatient (CLI) | payer OTHER ==
--- NOTE | 2020-07-13 13:32 | RADIOLOGY REPORT (SQ) ---
EXAM DESCRIPTION: U/S ABDOMEN COMPLETE W/O DOP IMAGES COMPLETED DATE/TIME: 07/13/2020 1:19 pm REASON FOR STUDY: (R10.10)UPPER ABDOMINAL PAIN, UNSPECIFIED(R10.30)LOWER ABDOMINAL PAIN, UNSP R10.10 UPPER ABDOMINAL PAIN, UNSPECIFIED R10.30 LOWER ABDOMINAL PAIN, UNSPECIFIED COMPARISON: Renal ultrasound dated 08/07/2019. TECHNIQUE: Dynamic and static grayscale images acquired of the abdomen and recorded on PACS. Additio nal selected color Doppler and spectral images recorded. Note: Study does not meet criteria for a complete doppler/duplex scan LIMITATIONS: None. FINDINGS: PANCREAS: No masses. Visualized pancreatic duct normal caliber. LIVER: Echotexture is coarse with increased echogenicity consistent with fatty infiltration. 1.9 cm cyst in the left lobe. LIVER VASCULATURE: Normal directional flow of the main portal vein and hepatic veins. GALLBLADDER: No stones. Normal wall thickness. No pericholecystic fluid. ULTRASOUND-DETECTED GALLAGHER'S SIGN: Negative. INTRAHEPATIC DUCTS AND COMMON DUCT: CBD and intrahepatic ducts normal caliber. No filling defects. INFERIOR VENA CAVA: Normal flow. AORTA: No aneurysm. RIGHT KIDNEY: Again seen are multiple large cysts. No solid or suspicious masses. No hydronephrosis. No calcifications. LEFT KIDNEY: Again seen are multiple large cysts. No solid or suspicious masses. No hydronephrosis. No calcifications. SPLEEN:Normal size. No solid masses. PERITONEAL AND PLEURAL SPACES: No ascites or effusions. OTHER: No other significant finding. IMPRESSION: 1. POLYCYSTIC KIDNEY DISEASE. 2. FATTY LIVER. INCIDENTAL HEPATIC CYST. NO OTHER SIGNIFICANT FINDING. TECHNICAL DOCUMENTATION: JOB ID: [id number] [employer]- All Rights Reserved Reading location - IP/workstation name: [email or web address]
== END ==
LOC: RAD 12:15
PROVIDERS: ATTEND Physician Assistant
DX: Q61.3 Polycystic kidney, unspecified (principal); K76.0 Fatty (change of) liver, not elsewhere classified; K76.89 Other specified diseases of liver; R10.10 Upper abdominal pain, unspecified; R10.30 Lower abdominal pain, unspecified
CPT/HCPCS: 76700